=== PATIENT | male | born 1965 ===

== ENCOUNTER 2022-07-04 15:30 | Outpatient (REF) | payer OTHER, SELFPAY | END 2022-07-04 15:31 | disposition home or self-care (01) | LOC: HO.SH 15:30 | PROVIDERS: Visit Provider Physician Assistant | DX: Z01.118 Encounter for examination of ears and hearing with other abnormal findings (principal); H90.3 Sensorineural hearing loss, bilateral; H93.13 Tinnitus, bilateral | CPT/HCPCS: 92557; 92567; 92588 ==

== ENCOUNTER 2023-10-20 12:06 | Outpatient (AMB) | payer OTHER, SELFPAY ==
--- NOTE | 2023-10-20 12:08 | AM.OFFWIN_ITS ---
Intake Vital Signs 10/20/23 12:09 Height 5 ft 8 in Weight 142 lb BMI 21.6 BP 140/90 H Blood Pressure Location Lt brachial Position Sitting Pulse 68 Pulse Source Pulse Oximeter Pulse Oximetry (%) 98 Oxygen Delivery Method Room Air Intake Visit Reasons: [employer] something stuck in RT thumb Intake Note: Patient here for foreign opject in thumb on right hand while at work yesterday and woke up this morning with it red and swollen. Patient Tobacco Use Status: Never used Tobacco Allergies No Known Allergies Allergy (Verified 10/20/23 14:02) Do you need a note to return to daycare/school/sports/work: No HPI HPI Comments History of Present Illness Details 58 y/o male patient who presents to the walk in clinic with c/o foreign body right index finger. He was working with wood and metal piping yesterday, and one of the pieces broke the skin on right thumb and he feels like it is stuck inside. Finger is painful, swollen and redness. [facility] Social History Patient Tobacco Use Status: Never used Tobacco Advance Directives: No Advance Directives Information Provided: No Do you have a plan to hurt others: No Plan Review of Systems Const All systems reviewed & are unremarkable except as noted in HPI and below Physical Exam Vital Signs: Last Vital Signs Pulse 68 10/20/23 12:09 BP 140/90 H 10/20/23 12:09 Pulse Ox 98 10/20/23 12:09 Oxygen Delivery Method Room Air 10/20/23 12:09 BMI result Body Mass Index 21.6 Const General: cooperative and no acute distress Orientation/consciousness: patient oriented x3 Skin General skin exam: erythema Trauma: puncture Neuro General: patient oriented x3, gait normal and moves all extremities Extrem Right upper extremity: Extremity exam: right hand Details: normal capillary refill, tenderness, swelling Location: of the thumb Location: involving the entire digit and puncture wound Left upper extremity: normal to inspection and full ROM Psych Speech and movement: Normal speech and movement present Assessment & Plan Assessment & Plan (1) Foreign body of thumb, right: Code(s): S60.351A - Superficial foreign body of right thumb, initial encounter Qualifiers: Encounter type: initial encounter Qualified Code(s): S60.351A - Superficial foreign body of right thumb, initial encounter Plan: Preliminary Xray images show 2 small pieces imbedded deep (Dermis layer). Advised Pt to go to ED for possible removal of FB. Called ED and provided Report to the covering Provider. Orders: Orders XR finger RT min 2V Today S60.351A - Superficial foreign body of right thumb, initial encounter Coding Level of Care Code Est Pt Level 4 (60940) Diagnoses Foreign body of right thumb, initial encounter S60.351A Encounter type: initial encounter Time Spent (min) 20
[2023-10-20 12:09] VITALS: BP 140/90; PULSE 68; O2SAT 98; BMI 21.6
== END 2023-10-20 13:46 | disposition home or self-care (01) ==
PROVIDERS: PCP Internal Medicine; Visit Provider Nurse Practitioner Family
DX: S60.351A Superficial foreign body of right thumb, initial encounter (principal); Z04.2 Encounter for examination and observation following work accident
CPT/HCPCS: 99214

== ENCOUNTER 2023-10-20 13:02 | Outpatient (REF) | payer OTHER, SELFPAY ==
--- NOTE | ~2023-10-20 | XR_ITS ---
EXAMINATION: XR FINGER, RIGHT CLINICAL INFORMATION: Superficial foreign body. COMPARISON: None available. TECHNIQUE: Three views of the right thumb. FINDINGS: There are 2 radiopaque foreign bodies overlying the ventral soft tissues of the distal thumb, best visualized on the lateral view. No acute fractures or malalignment. [id number] degenerative osteoarthritis of the triscaphe space with narrowing and subcortical sclerosis. Nonaggressive appearing subcortical cystic observations in the distal ulna and some of the carpal bones, most likely degenerative in nature. Diffuse soft tissue swelling. XR/XR finger RT min 2V IMPRESSION: 1. Two radiopaque foreign bodies overlying the ventral soft tissues of the distal thumb. 2. No acute fractures or malalignment. 3. [id number] degenerative osteoarthritis of the triscaphe space. Electronically signed by: Karen Marin MD 10/20/2023 03:14 PM EDT
== END 2023-10-20 13:03 | disposition home or self-care (01) ==
LOC: HO.HMGCX 13:02
PROVIDERS: PCP Internal Medicine; Visit Provider Nurse Practitioner Family
DX: S60.351A Superficial foreign body of right thumb, initial encounter (principal)
CPT/HCPCS: 73140

== ENCOUNTER 2023-10-20 13:51 | Emergency (ER) | payer OTHER, SELFPAY ==
[2023-10-20 14:00] VITALS: BP 148/85; PULSE 71; RESP 18; TEMP 37; O2SAT 97; BMI 28.0
--- NOTE | 2023-10-20 14:03 | ED_ITS ---
HPI - General Adult General Chief complaint: Extremity Injury, Upper Stated complaint: r thumb infection sent from urgent care Time Seen by Provider: 10/20/23 14:10 Source: patient Mode of arrival: ambulatory Limitations: no limitations History of Present Illness ED Provider: Aniyah Cruz PA-C HPI narrative: Patient is a 58 year old assigned male at with no reported medical history presenting to the emergency department today with metal pieces in his right thumb. Patient states that he was splitting wires when he got metal pieces stuck in his right thumb. Patient states that he went to the urgent care for removal and they were unable to remove the pieces. Patient states that he was sent here to see if they could be removed here. Patient denies any dizziness, lightheadedness, abdominal pain, nausea, vomiting, fever, chills, blurry vision, double vision, loss of vision, chest pain, difficulty breathing, shortness of breath, back pain, night sweats, pain with urination, increased urinary frequency, increased urinary urgency, blood in his urine or stool, syncope or a near syncopal episode, bowel incontinence, bladder incontinence, or any other complaints at this time. Relieving factors: none Exacerbating factors: none Associated symptoms: denies other symptoms Treatments prior to arrival: none Related Data Previous Rx's ?Medication ?Instructions ?Recorded amoxicillin 875 mg-potassium 1 tab PO BID 10 days #20 tabs 10/20/23 clavulanate 125 mg tablet Allergies Allergy/AdvReac Type Severity Reaction Status Date / Time No Known Allergies Allergy Verified 10/20/23 14:02 Review of Systems Constitutional: Constitutional: Reports no additional constitutional complaints, Denies chills, Denies fever(s) and Denies night sweats Eyes: Eyes: Reports no additional eye complaints, Denies blurry vision, Denies change in vision, Denies diplopia, Denies eye discharge, Denies loss of vision and Denies eye pain ENT: Denies dizziness Cardiovascular: Cardiovascular: Reports no additional cardiovascular complaints, Denies chest pain, Denies lightheadedness, Denies Loss of Consciousness and Denies dyspnea Respiratory: Respiratory: Reports no additional respiratory complaints and Denies dyspnea Gastrointestinal: Gastrointestinal: Reports no additional gastrointestinal complaints, Denies abdominal pain, Denies melena, Denies hematochezia, Denies change in bowel habits and Denies change in stool character Genitourinary: Genitourinary: Reports no additional male genitourinary complaints, Denies hematuria, Denies oliguria, Denies difficulty urinating, Denies dysuria, Denies urinary frequency, Denies urinary hesitancy, Denies urinary incontinence and Denies urinary urgency Musculoskeletal: Musculoskeletal: Reports no additional musculoskeletal complaints, Denies numbness and Denies tingling Comments: right thumb pain, swelling, redness Neurologic: Denies dizziness, Denies loss of vision, Denies numbness and Denies tingling Psychiatric: Psychiatric: Reports no additional psychiatric complaints Endocrine: Endocrine: Reports no additional endocrine complaints Hematologic/Lymphatic: Hematologic/Lymphatic: Reports no additional hematologic/lymphatic complaints Allergic/Immunologic: Allergic/Immunologic: Reports no additional allergic/immunologic complaints PMFSH Past Medical History Attestation statement: The following information was validated with the patient. Source: old records reviewed and nursing notes reviewed Social History Social History Patient Tobacco Use Status: Never used Tobacco Advance Directives: No Advance Directives Information Provided: No Do you have a plan to hurt others: No Plan Physical Exam ED Vital Signs: Vital Signs - 24 hr 10/20/23 14:00 10/20/23 14:23 Temperature 98.6 F 98.6 F Pulse Rate 71 71 Respiratory Rate 18 18 Blood Pressure 148/85 H 148/85 H Pulse Oximetry 97 97 Oxygen Delivery Method Room Air Room Air BMI result Body Mass Index 28.0 Const General: cooperative, no acute distress, alert and awake Nutritional Appearance: well nourished Orientation/consciousness: patient oriented x3 Limitations: no limitations [facility] Head: Yes normal to inspection and Yes atraumatic Ears: hearing grossly normal bilaterally and external ears normal General nose exam: Normal external nose present, no nasal discharge noted and no epistaxis Face and sinus: Yes normal facial exam, No abrasion and No laceration Mouth: Normal oral and palatal mucosa present, no drooling and no muffled voice Eyes General: appearance normal, both eyes and all related structures Periorbital: periorbital findings normal Eyelids: Yes eyelids normal Conjunctivae: conjunctivae normal Pupils: Equal, round and reactive pupils present EOM: EOMs intact bilaterally Neck Neck: Yes normal visual inspection, Yes full ROM and Yes no lymphadenopathy Chest Chest palpation & inspection: normal inspection of the chest Resp Effort & Inspection: normal respiratory effort and able to speak in complete sentences GI Inspection: Yes normal to inspection Neuro General: patient oriented x3 and moves all extremities Cranial nerves: Yes Equal, round and reactive pupils present Cognition (Neuro): normal cognition Extrem Other: palmar swelling to the right thumb with erythema General: Yes full ROM and Yes capillary refill normal Psych Appearance: grossly normal Mental Status: mental status grossly normal Affect: normal affect Attitude: cooperative Thought process: Normal thought process present Thought content: Normal thought content present Insight: Good insight present (Psych) Course Course Course Narrative: This is an RME performed by Germán Louie CNP: Additional HPI, ROS, PE not included below will be deferred to primary provider. Patient is a 58-year-old male presents emergency department for evaluation. 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 Awoke today with pain and redness, decreased range of motion to the thumb. Presented to the walk-in clinic, had an x-ray was advised that there metal fragments, that need to be removed. Denies fevers or chills. Last Tdap 2022. He states he attempted to remove them at home with a needle but was unsuccessful. Medical Decision Making Medical Decision Making [facility] Narrative: Patient is a 58 year old assigned male at with no reported medical history presenting to the emergency department today with metal in his right thumb. Patient's physical exam was as noted in the physical exam portion of this note. Patient's left finger x-ray showed 2 foreign bodies in the left thumb. I explained my physical exam findings as well as all test results to the patient. I answered all questions asked by the patient. I explained to the patient that the foreign bodies are too deep for me or any other emergency clinician to safely remove them and he will have to follow up with a general surgeons office for further exploration of removal. I stressed the importance of the patient taking his medication as directed (either prescribed or as the over the counter packaging recommends). I stressed the importance of the patient following up with his primary care provider and a general surgeon. I stressed the importance of the patient returning to the emergency department immediately if his symptoms were to worsen or if he were to develop any dizziness, shortness of breath, difficulty breathing, chest pain, blurry vision, loss of vision, nausea, vomiting, abdominal pain, fever, chills, back pain, or any other complaints. Patient verbalized agreement and understanding with this treatment plan and discharge. Differential Diagnosis Differential Diagnoses: The differential diagnosis associated with the presentation includes Retained foreign body Foreign body removal Thumb pain Cellulitis Admission/Observation Consideration of admission/observation: Escalation of care including admission/observation considered Patient would have been admitted to the hospital had his work up had any findings where hospital admission was appropriate and his clinical presentation warranted hospital admission. Independent Interpretation I performed an independent interpretation of an: Plain X-Ray Interpretation: My interpretation is in agreement with the radiologist's impression of this imaging study. EXAMINATION: XR FINGER, RIGHT CLINICAL INFORMATION: Superficial foreign body. COMPARISON: None available. TECHNIQUE: Three views of the right thumb. FINDINGS: There are 2 radiopaque foreign bodies overlying the ventral soft tissues of the distal thumb, best visualized on the lateral view. No acute fractures or malalignment. [id number] degenerative osteoarthritis of the triscaphe space with narrowing and subcortical sclerosis. Nonaggressive appearing subcortical cystic observations in the distal ulna and some of the carpal bones, most likely degenerative in nature. Diffuse soft tissue swelling. XR/XR finger RT min 2V IMPRESSION: 1. Two radiopaque foreign bodies overlying the ventral soft tissues of the distal thumb. 2. No acute fractures or malalignment. 3. [id number] degenerative osteoarthritis of the triscaphe space. Electronically signed by: Karen Marin MD 10/20/2023 03:14 PM EDT RP Dictated By: Karen Marin Signed By: Electronically signed by Karen Marin 10/20/23 1514 Radiology Impression Discussion of test interpretation with radiology: I have reviewed the radiologist's reading. Prescription Management I considered prescription management with: Antibiotic (patient prescribed an antibiotic for right thumb cellulitis) Discharge Plan Discharge Clinical Impression: Retained foreign body in soft tissue, Cellulitis Patient Disposition: Home, Self-Care Instructions: Soft Tissue Foreign Body (ED), Cellulitis (DC) Additional Instructions: The retained metal foreign bodies in your thumb cannot be removed at this time. Take the antibiotic as prescribed. Follow up with your primary care provider and a general surgeon for removal. Return to the emergency department immediately if your symptoms worsen or if you develop any dizziness, shortness of breath, difficulty breathing, chest pain, blurry vision, loss of vision, nausea, vomiting, abdominal pain, fever, chills, back pain, or any other complaints. Prescriptions: New amoxicillin-pot clavulanate 875-125 mg tablet 1 tab PO BID 10 Days Qty: 20 0RF Ref[place]: [facility] [place] [facility] [place] Group] (Call to establish and follow up with a general surgeon to remove the retained foreign bodies in your thumb. ) Kristin Fatima MD [Primary Care Provider] - Interventions: ED Discharge Assessment Last Done: 10/20/23 14:23 Discharge Date/Time: 10/20/23 14:26 Print Language: Chinese
[2023-10-20 14:23] VITALS: BP 148/85; PULSE 71; RESP 18; TEMP 37; O2SAT 97
== END 2023-10-20 14:26 | disposition home or self-care (01) ==
PROVIDERS: Emergency Provider Emergency Medicine; PCP Internal Medicine
DX: M79.5 Residual foreign body in soft tissue (principal); L03.011 Cellulitis of right finger
CPT/HCPCS: 99282; 99283